=== PATIENT | female | born 1975 | race Caucasian/White ===

== ENCOUNTER 2019-06-03 12:15 | Emergency (ER) | payer MEDICARE ==
[~2019-06-03] VITALS: Ht 162.6 cm; Wt 95.5 kg
[2019-06-03 12:41] VITALS: Ht 162.6 cm; Wt 95.5 kg
[2019-06-03] MEDS ORDERED: ULTRAM50 MG PO (12:42)
[2019-06-03] MEDS ORDERED: ZOLOFT25 MG PO (12:44)
[2019-06-03] MEDS ORDERED: PROTONIX40 MG PO (12:44)
[2019-06-03] MEDS ORDERED: NORVASC10 MG PO (12:44)
[2019-06-03] MEDS ORDERED: DIOVAN40 MG PO (12:45)
[2019-06-03] MEDS ORDERED: CYCLOBENZAPRINE10 MG PO (14:45)
[2019-06-03] MEDS ORDERED: MECLIZINE HCL25 MG PO (14:45)
[2019-06-03 15:09] VITALS: BP 175/98
== END 2019-06-03 15:14 | disposition home or self-care (01) ==
LOC: D.ER 12:15
DX: M54.2 Cervicalgia (principal); R11.0 Nausea; R42 Dizziness and giddiness; I10 Essential (primary) hypertension

== ENCOUNTER 2019-09-17 15:56 | Inpatient (IN) | payer MEDICARE ==
[~2019-09-17] VITALS: Ht 162.6 cm; Wt 95.5 kg
[~2019-09-17 15:56] MED LIST: CYCLOBENZAPRINE10 MG PO; DIOVAN40 MG PO; MECLIZINE HCL25 MG PO; NORVASC10 MG PO; PROTONIX40 MG PO; ULTRAM50 MG PO; ZOLOFT25 MG PO
[2019-09-17 16:29] LABS: BASOPHILS 0.3 % (0-2); EOSINOPHILS 1.1 % (0-7); HEMATOCRIT 42.2 % (36.0-48.0); HEMOGLOBIN 13.6 g/dL (12-16); IMMATURE GRANULOCYTES 0.2 % (0-5); MCH 28.9 pg (26.0-34.0); MCHC 32.2 g/dL (31.0-37.0); MCV 89.6 fL (80.0-100.0); MEAN PLATELET VOLUME 9.7 fL (7.4-10.4); MONOCYTES 6.1 % (2-11); NEUTROPHILS 73.3 % (40-80); PLATELET COUNT 399 10x3/uL (130-400); RBC 4.71 10x6/uL (4.00-5.40); RDW 12.7 % (11.5-14.5); WBC 10.1 10x3/uL (4.8-10.8)
[2019-09-17 16:43] LABS: ANION GAP 13.5 mmol/L (8-16); CALCIUM 8.9 mg/dL (8.5-10.1); CREATININE - SERUM 0.9 mg/dL (0.6-1.3); POTASSIUM - SERUM 3.5 mmol/L (3.5-5.1)
[2019-09-17 16:46] LABS: ALBUMIN 3.5 g/dL (3.4-5.0); BILIRUBIN - TOTAL 0.41 mg/dL (0.2-1.3); PROTEIN - SERUM 7.7 g/dL (6.4-8.2)
[2019-09-17 17:21] LABS: BILIRUBIN NEGATIVE (NEGATIVE); GLUCOSE NEGATIVE (NEGATIVE); KETONE NEGATIVE (NEGATIVE); NITRITE NEGATIVE (NEGATIVE); UROBILINOGEN NORMAL (NORMAL)
[2019-09-17 17:26] LABS: LIPASE 115 U/L (73-393)
[2019-09-17 18:41] LABS: AMYLASE - SERUM 40 U/L (25-115)
[2019-09-17] MEDS ORDERED: EDARBYCLOR 40-1 EAC1 PO (20:19)
[2019-09-17 22:49] VITALS: BP 163/85; BMI 36.1
[2019-09-18] VITALS: BP 124/65
--- NOTE | 2019-09-18 01:14 | NUR ---
PATIENT REQUESTS PAIN MEDICINE. RATES PAIN 8/10 IN ABDOMEN. ADMINISTERED PER ORDER. DENIES FURTHER NEEDS AT THIS TIME. CALL LIGHT REMAINS IN REACH. CPOC.
[2019-09-18 04:00] VITALS: BP 130/77
[2019-09-18 10:42] VITALS: BP 143/64
[2019-09-18 11:46] VITALS: Ht 162.6 cm; Wt 95.5 kg
[2019-09-18] MEDS ORDERED: FLAGYL500 MG PO (13:49)
[2019-09-18] MEDS ORDERED: LEVAQUIN750 MG PO (13:49)
--- NOTE | 2019-09-18 14:05 | MORECARE ---
CASE MANAGEMENT DISCHARGE SUMMARY PATIENT: SUNSHINE CHILD UNIT: [id number] ADM DATE: 09/17/19 AGE: 44 : 73 SEX: F ROOM/BED: D.2229 AUTHOR: WILY MARTINEZ PHYSICIAN: REFERRING PHYSICIAN: LINDA TORRES MD DATE OF SERVICE: 09/18/19 Discharge Plan Patient Name: SUNSHINE CHILD [facility] [facility] 1975 Planned Disposition: Home Anticipated Discharge Date: Discharge Date: Expected LOS: Initial Reviewer: [email or web address] Initial Review Date: 09/18/2019 Generated: 09/18/19 3:04 pm Patient Name: SUNSHINE CHILD Page 12486 at 1405 All edits/amendments must be made on the electronic document DICTATION DATE: 09/18/19 1404 REELING OPERATOR: FILEMON 09/18/19 1404 RPT#: [id number] DC DATE: STATUS: ADM IN [facility] [address] [place] [address] END OF REPORT
--- NOTE | 2019-09-18 14:12 | MORECARE ---
CASE MANAGEMENT DISCHARGE SUMMARY PATIENT: SUNSHINE CHILD UNIT: [id number] ADM DATE: 09/17/19 AGE: 44 : 73 SEX: F ROOM/BED: D.2229 AUTHOR: MICHELLE,DOC PHYSICIAN: REFERRING PHYSICIAN: LINDA TORRES MD DATE OF SERVICE: 09/18/19 Discharge Plan Patient Name: SUNSHINE CHILD Facility: [facility]:[place] : 1975 Planned Disposition: Home Anticipated Discharge Date: Discharge Date: Expected LOS: Initial Reviewer: [email or web address] Initial Review Date: 09/18/2019 Generated: 09/18/19 3:11 pm Comments DCP- Discharge Planning Updated by [email or web address]: Maria L Putnam on 09/18/19 1:[address] Patient Name: SUNSHINE CHILD Admission Status: ER Accout number: [id number] Admission Date: 09-17-2019 : 1975 Admission Diagnosis: Attending: LINDA TORRES Current LOS: 1 Anticipated DC Date: Planned Disposition: Home Primary Insurance: [employer] Discharge Planning Comments: CM spoke with patient regarding discharge planning/needs. She is currently living at [address] [place] [address] in [place] with her boyfriend and plans on moving here. Her PCP is in [place]. She is completely independent with all ADL's and IADL's. She states her boyfriend will pick her up at discharge. Informed of availability of home health, rehab and DME, denies needs at this time. No needs identified. Home today. Manager Hematology: Maria L Putnam DCPIA - Discharge Planning Initial Assessment Updated by [email or web address]: Maria L Putnam on 09/18/19 2:04 pm * Is the patient Alert and Oriented? Yes * PCP Dr Mich Oswald in [place] * Pharmacy [facility] in [place] * Preadmission Environment Home with Family * ADLs Independent * Equipment CPAP * List name and contact numbers for known caregivers / representatives who currently or will assist patient after discharge: Jorge maddox - [phone] * Verbal permission to speak to the caregivers and representatives has been obtained from the patient. Yes * Community resources currently utilized None * Additional services required to return to the preadmission environment? No * Can the patient safely return to the preadmission environment? Yes * Has this patient been hospitalized within the prior 30 days at any hospital? No Last DP export: 09/18/19 1:05 p Patient Name: SUNSHINE CHILD Page 70187 at 1412 All edits/amendments must be made on the electronic document DICTATION DATE: 09/18/191410 SOA ENGINEER: FILEMON 09/18/191410 RPT#: [id number] DC DATE: STATUS: ADM IN [facility] [address] [place] [address] END OF REPORT
--- NOTE | 2019-09-18 17:13 | NUR ---
DISCHARGE PAPERWORK SIGNED, ALL QUESTIONS ANSWERED. IV TO RIGHT AC DC'D, TIP INTACT. ESCORTED OUT VIA WHEELCHAIR.
--- NOTE | 2019-09-19 09:07 | MORECARE ---
CASE MANAGEMENT DISCHARGE SUMMARY PATIENT: SUNSHINE CHILD UNIT: [id number] ADM DATE: 09/17/19 AGE: 44 : 73 SEX: F ROOM/BED: D.2229 AUTHOR: MICHELLEDOC PHYSICIAN: REFERRING PHYSICIAN: LINDA TORRES MD DATE OF SERVICE: 09/19/19 Discharge Plan Patient Name: SUNSHINE CHILD Facility: [facility]:[place] : 1975 Planned Disposition: Home Anticipated Discharge Date: Discharge Date: 09/18/2019 Expected LOS: Initial Reviewer: [email or web address] Initial Review Date: 09/18/2019 Generated: 09/19/19 10:06 am Comments DCP- Discharge Planning Updated by [email or web address]: Maria L Putnam on 09/18/19 1:[address] Patient Name: SUNSHINE CHILD Admission Status: ER Accout number: [id number] Admission Date: 09-17-2019 : 1975 Admission Diagnosis: Attending: LINDA TORRES Current LOS: 1 Anticipated DC Date: Planned Disposition: Home Primary Insurance: [employer] Discharge Planning Comments: CM spoke with patient regarding discharge planning/needs. She is currently living at [address] [place] [address] in [place] with her boyfriend and plans on moving here. Her PCP is in [place]. She is completely independent with all ADL's and IADL's. She states her boyfriend will pick her up at discharge. Informed of availability of home health, rehab and DME, denies needs at this time. No needs identified. Home today. Salvage Worker: Maria L Putnam DCPIA - Discharge Planning Initial Assessment Updated by [email or web address]: Maria L Putnam on 09/18/19 2:04 pm * Is the patient Alert and Oriented? Yes * PCP Dr Mich Oswald in [place] * Pharmacy [facility] in [place] * Preadmission Environment Home with Family * ADLs Independent * Equipment CPAP * List name and contact numbers for known caregivers / representatives who currently or will assist patient after discharge: Jorge jonesfriendayanna - [phone] * Verbal permission to speak to the caregivers and representatives has been obtained from the patient. Yes * Community resources currently utilized None * Additional services required to return to the preadmission environment? No * Can the patient safely return to the preadmission environment? Yes * Has this patient been hospitalized within the prior 30 days at any hospital? No Last DP export: 09/18/19 1:12 p Patient Name: SUNSHINE CHILD Page 71680 at 0907 All edits/amendments must be made on the electronic document DICTATION DATE: 09/19/19905 GLASS FURNACE OPERATOR: FILEMON 09/19/19905 RPT#: [id number] DC DATE:09/18/19 STATUS: DIS IN [facility] [address] [place] [address] END OF REPORT
== END 2019-09-18 17:16 | disposition home or self-care (01) | DRG 392 ==
LOC: D.ER 15:56 → D.MS 19:26
PROVIDERS: Emergency Medicine; ADMIT Internal Medicine Nephrology; ATTEND Internal Medicine Nephrology
DX: K57.92 Diverticulitis of intestine, part unspecified, without perforation or abscess without bleeding (principal); I10 Essential (primary) hypertension; E78.5 Hyperlipidemia, unspecified; F41.9 Anxiety disorder, unspecified; G89.29 Other chronic pain; M54.2 Cervicalgia

== ENCOUNTER 2019-09-20 10:36 | Inpatient (IN) | payer BC ==
[~2019-09-20] VITALS: Ht 162.6 cm; Wt 95.3 kg
[~2019-09-20 10:36] MED LIST changes: +EDARBYCLOR 40-1 EAC1 PO; +FLAGYL500 MG PO; +LEVAQUIN750 MG PO
[2019-09-20 11:21] LABS: BASOPHILS 0.5 % (0-2); EOSINOPHILS 2.2 % (0-7); HEMATOCRIT 44.5 % (36.0-48.0); HEMOGLOBIN 13.9 g/dL (12-16); IMMATURE GRANULOCYTES 0.2 % (0-5); LYMPHOCYTES 23.2 % (15-50); MCH 28.4 pg (26.0-34.0); MCHC 31.2 g/dL (31.0-37.0); MEAN PLATELET VOLUME 9.9 fL (7.4-10.4); NEUTROPHILS 67.9 % (40-80); PLATELET COUNT 378 10x3/uL (130-400); RBC 4.89 10x6/uL (4.00-5.40); RDW 12.5 % (11.5-14.5); WBC 8.5 10x3/uL (4.8-10.8)
[2019-09-20 11:31] LABS: CALC OSMOLALITY 274 mosm/kg (275-300); CALCIUM 9.1 mg/dL (8.5-10.1); CARBON DIOXIDE 26.7 mmol/L (21.0-32.0); CHLORIDE - SERUM 103 mmol/L (98-107); CREATININE - SERUM 0.9 mg/dL (0.6-1.3); GLUCOSE 94 mg/dL (74-106); POTASSIUM - SERUM 3.4 mmol/L (3.5-5.1); SODIUM 138 mmol/L (136-145); UREA NITROGEN 9 mg/dL (7-18); eGFR NON AFRICAN AMERICAN 72 mL/min (90-120)
[2019-09-20 11:34] LABS: HCG URINE NEGATIVE (NEGATIVE)
[2019-09-20 11:43] LABS: ALBUMIN 3.3 g/dL (3.4-5.0); ALKALINE PHOSPHATASE 82 U/L (30-120); ALT (SGPT) 28 U/L (10-68); AMYLASE - SERUM 94 U/L (25-115); LIPASE 852 U/L (73-393); PROTEIN - SERUM 7.8 g/dL (6.4-8.2); TROPONIN-I < 0.017 ng/mL (0.000-0.060)
[2019-09-20 11:47] LABS: SPECIFIC GRAVITY 1.015 (1.005-1.020)
[2019-09-20 11:48] LABS: BACTERIA MODERATE /hpf (NEGATIVE); BILIRUBIN NEGATIVE (NEGATIVE); EPITHELIAL CELLS 0-5 /hpf (0-5); GLUCOSE NEGATIVE (NEGATIVE); KETONE NEGATIVE (NEGATIVE); NITRITE NEGATIVE (NEGATIVE); UROBILINOGEN NORMAL (NORMAL); WHITE CELLS - URINE 0-5 /hpf (NEGATIVE)
[2019-09-20] MEDS ORDERED: EDARBYCLOR 40-1 EAC1 PO (14:06)
--- NOTE | 2019-09-20 15:00 | NUR ---
ASSESSMENT PER FLOW SHEET. PATIENT IS WITHOUT DISTRESS. ORIENTATION TO ROOM.CALL LIGHT IN REACH.
[2019-09-20 15:04] VITALS: BP 160/100; BMI 36.1
[2019-09-20 22:05] VITALS: BP 161/75
[2019-09-21 01:08] VITALS: BP 133/74
[2019-09-21 05:38] VITALS: BP 130/59
[2019-09-21 05:58] LABS: BASOPHILS 0.5 % (0-2); EOSINOPHILS 3.5 % (0-7); HEMATOCRIT 40.1 % (36.0-48.0); HEMOGLOBIN 12.6 g/dL (12-16); IMMATURE GRANULOCYTES 0.5 % (0-5); LYMPHOCYTES 34.3 % (15-50); MCH 28.4 pg (26.0-34.0); MCHC 31.4 g/dL (31.0-37.0); MCV 90.5 fL (80.0-100.0); MEAN PLATELET VOLUME 9.6 fL (7.4-10.4); MONOCYTES 7.7 % (2-11); NEUTROPHILS 53.5 % (40-80); PLATELET COUNT 363 10x3/uL (130-400); RBC 4.43 10x6/uL (4.00-5.40); RDW 12.5 % (11.5-14.5)
--- NOTE | 2019-09-21 06:00 | NUR ---
I have reviewed this patient and I concur with the Shift Assessment completed by the Licensed Practical Nurse today this shift.
[2019-09-21 06:36] LABS: ALKALINE PHOSPHATASE 74 U/L (30-120); ALT (SGPT) 23 U/L (10-68); BILIRUBIN - TOTAL 0.36 mg/dL (0.2-1.3); CALC OSMOLALITY 275 mosm/kg (275-300); CALCIUM 8.5 mg/dL (8.5-10.1); CARBON DIOXIDE 27.7 mmol/L (21.0-32.0); CHLORIDE - SERUM 105 mmol/L (98-107); GLUCOSE 96 mg/dL (74-106); POTASSIUM - SERUM 3.2 mmol/L (3.5-5.1); PROTEIN - SERUM 6.8 g/dL (6.4-8.2); SODIUM 139 mmol/L (136-145); UREA NITROGEN 7 mg/dL (7-18)
[2019-09-21 06:45] LABS: CREATININE - SERUM 0.6 mg/dL (0.6-1.3); eGFR NON AFRICAN AMERICAN > 90 mL/min (90-120)
[2019-09-21 09:57] VITALS: BP 156/89
[2019-09-21 10:49] VITALS: Ht 162.6 cm; Wt 95.3 kg
[2019-09-21 14:41] VITALS: BP 150/86
[2019-09-21 17:46] VITALS: BP 163/98
--- NOTE | 2019-09-21 18:45 | NUR ---
PATIENT IN BED WITH IV INTACT. NO COMPLAINTS OR SIGNS OF DISTRESS. CALL LIGHT WITHIN REACH. DENIES ANY NEEDS AT THIS TIME.
[2019-09-21 20:00] VITALS: BP 138/81
--- NOTE | 2019-09-22 01:12 | NUR ---
I have reviewed this patient and I concur with the Shift Assessment completed by the Licensed Practical Nurse today this shift.
--- NOTE | 2019-09-22 02:32 | NUR ---
PT RESTING IN BED. EYES CLOSED. NO SIGNS OF DISTRESS. BREATHING EVEN AND UNLABORED. IV SITE RT FA DRESSING CLEAN DRY AND INTACT. NO SIGNS OF INFECTION. LUNG SOUNDS CLEAR. BOWEL SOUNDS ACTIVE. SKIN CLEAN DRY AND INTACT. WILL CONITNUE PLAN OF CARE. CALL LIGHT IN REACH. BED LOWERED AND LOCKED. BED RAILS UPX2
[2019-09-22 04:00] VITALS: BP 141/95
[2019-09-22 04:42] LABS: BASOPHILS 0.3 % (0-2); EOSINOPHILS 2.7 % (0-7); HEMOGLOBIN 13.1 g/dL (12-16); IMMATURE GRANULOCYTES 0.3 % (0-5); LYMPHOCYTES 24.6 % (15-50); MCH 28.4 pg (26.0-34.0); MCV 88.7 fL (80.0-100.0); MEAN PLATELET VOLUME 9.4 fL (7.4-10.4); MONOCYTES 7.7 % (2-11); NEUTROPHILS 64.4 % (40-80); PLATELET COUNT 366 10x3/uL (130-400); RBC 4.62 10x6/uL (4.00-5.40); RDW 12.5 % (11.5-14.5); WBC 6.8 10x3/uL (4.8-10.8)
[2019-09-22 05:01] LABS: ANION GAP 11.3 mmol/L (8-16); BILIRUBIN - TOTAL 0.35 mg/dL (0.2-1.3); CALCIUM 8.7 mg/dL (8.5-10.1); CARBON DIOXIDE 26.9 mmol/L (21.0-32.0); POTASSIUM - SERUM 3.2 mmol/L (3.5-5.1); PROTEIN - SERUM 6.9 g/dL (6.4-8.2)
[2019-09-22 05:04] LABS: CREATININE - SERUM 0.9 mg/dL (0.6-1.3)
[2019-09-22 09:13] VITALS: BP 149/85
[2019-09-22 09:47] LABS: MAGNESIUM - SERUM 1.9 mg/dL (1.8-2.4)
[2019-09-22 09:49] LABS: POTASSIUM - SERUM 3.7 mmol/L (3.5-5.1)
[2019-09-22] MEDS ORDERED: ZOFRAN ODT4 MG/UDTAB PO (10:53)
[2019-09-22] MEDS ORDERED: EDARBYCLOR 40-1 EAC1 PO (11:29)
--- NOTE | 2019-09-22 12:03 | MORECARE ---
CASE MANAGEMENT DISCHARGE SUMMARY PATIENT: SUNSHINE CHILD UNIT: [id number] ADM DATE: 09/20/19 AGE: 44 : 73 SEX: F ROOM/BED: D.2223 AUTHOR: WILY MARTINEZ PHYSICIAN: REFERRING PHYSICIAN: JANETTE ROMANO DO DATE OF SERVICE: 09/22/19 Discharge Plan Patient Name: SUNSHINE CHILD [facility] [facility] 1975 Planned Disposition: Home or Self Care Anticipated Discharge Date: Discharge Date: Expected LOS: Initial Reviewer: [email or web address] Initial Review Date: 09/20/2019 Generated: 09/22/19 1:02 pm DCPIA - Discharge Planning Initial Assessment Updated by [email or web address]: Lisset Schaeffer on 09/22/19 12:01 pm * Is the patient Alert and Oriented? Yes * PCP MIKAELA GARCIA IN [place] * Pharmacy [facility] IN [place] * Preadmission Environment Home with Family * ADLs Independent * Equipment None * List name and contact numbers for known caregivers / representatives who currently or will assist patient after discharge: DICKSON VIERAFRIEND [phone] * Verbal permission to speak to the caregivers and representatives has been obtained from the patient. N/A * Community resources currently utilized None * Additional services required to return to the preadmission environment? No * Can the patient safely return to the preadmission environment? Yes * Has this patient been hospitalized within the prior 30 days at any hospital? Yes Patient Name: SUNSHINE CHILD Page 42567 at 1203 All edits/amendments must be made on the electronic document DICTATION DATE: 09/22/19 120 ATHLETIC SHOE DESIGNER: FILEMON 09/22/19 1202 RPT#: [id number] DC DATE: STATUS: ADM IN [facility] [address] [place] [address] END OF REPORT
--- NOTE | 2019-09-22 12:10 | MORECARE ---
CASE MANAGEMENT DISCHARGE SUMMARY PATIENT: SUNSHINE CHILD UNIT: [id number] ADM DATE: 09/20/19 AGE: 44 : 73 SEX: F ROOM/BED: D.2223 AUTHOR: MICHELLE,DOC PHYSICIAN: REFERRING PHYSICIAN: JANETTE ROMANO DO DATE OF SERVICE: 09/22/19 Discharge Plan Patient Name: SUNSHINE CHILD Facility[facility]:[place] : 1975 Planned Disposition: Home or Self Care Anticipated Discharge Date: Discharge Date: Expected LOS: Initial Reviewer: [email or web address] Initial Review Date: 09/20/2019 Generated: 09/22/19 1:10 pm Comments DCP- Discharge Planning Updated by [email or web address]: Lisset Schaeffer on 09/22/19 11:[address] Patient Name: SUNSHINE CHILD Admission Status: ER Accout number: [id number] Admission Date: 09-20-2019 : 1975 Admission Diagnosis: Attending: JANETTE ROMANO Current LOS: 2 Anticipated DC Date: Planned Disposition: Home or Self Care Primary Insurance: [employer] OUT OF STATE Discharge Planning Comments: CM met with patient to complete initial dc planning assessment. CM educated patient on the CM role and verbal consent given by patient to complete assessment. Patient lives at home with her boyfriend where she is independent with her care. At discharge patient plans to return home and feels this is a safe discharge. CM discussed availability of home health, rehab services, and medical equipment. Patient denied known discharge needs at this time. She states she feels better. CM will continue to follow and will assist as needed with dc plans/needs. Car Pusher: Lisset Schaeffer DCPIA - Discharge Planning Initial Assessment Updated by [email or web address]: Lisset Schaeffer on 09/22/19 12:01 pm * Is the patient Alert and Oriented? Yes * PCP MIKAELA GARCIA IN [place] * Pharmacy [facility] IN [place] * Preadmission Environment Home with Family * ADLs Independent * Equipment None * List name and contact numbers for known caregivers / representatives who currently or will assist patient after discharge: DICKSON SCHROEDER -BOYFRIEND [phone] * Verbal permission to speak to the caregivers and representatives has been obtained from the patient. N/A * Community resources currently utilized None * Additional services required to return to the preadmission environment? No * Can the patient safely return to the preadmission environment? Yes * Has this patient been hospitalized within the prior 30 days at any hospital? Yes Last DP export: 09/22/19 11:02 a Patient Name: SUNSHINE CHILD Page 47415 at 1210 All edits/amendments must be made on the electronic document DICTATION DATE: 09/22/19 1210 GLOBAL RISK MANAGEMENT DIRECTOR: FILEMON 09/22/19 1210 RPT#: [id number] DC DATE: STATUS: ADM IN [facility] [address] [place] [address] END OF REPORT
--- NOTE | 2019-09-22 12:15 | NUR ---
PATIENT IV REMOVED AT THIS TIME WITH CATH TIP INTACT. TOLERATED WITH SMALL AMOUNT OF PAIN. GETTING READY FOR DC AT THIS TIME. CALL LIGHT WITHIN REACH.
--- NOTE | 2019-09-22 12:30 | NUR ---
PATIENT RECIEVED DC INSTRUCTIONS. VERBALIZED UNDERSTANDING. NO QUESTIONS AT THIS TIME. WAITING FOR TRANSPORTATION. EXPLAINED TO RESULTS ENGINEER MEDS AT PHARMACY. VERBALIZED UNDERSTANDING. CALL LIGHT WITHIN REACH.
[2019-09-22] MEDS ORDERED: LEVAQUIN750 MG (12:33)
[2019-09-22] MEDS ORDERED: FLAGYL500 MG PO (12:35)
[2019-09-22 12:36] VITALS: BP 140/95
--- NOTE | 2019-09-22 14:06 | NUR ---
PATIENT ESCORTED OUT OF HOSPITAL VIA WC WITH PERSONAL BELONGINGS TO PRIVATE VEHICLE.
--- NOTE | 2019-09-22 16:26 | MORECARE ---
CASE MANAGEMENT DISCHARGE SUMMARY PATIENT: SUNSHINE CHILD UNIT: [id number] ADM DATE: 09/20/19 AGE: 44 : 73 SEX: F ROOM/BED: D.2223 AUTHOR: MICHELLEDOC PHYSICIAN: REFERRING PHYSICIAN: JANETTE ROMANO DO DATE OF SERVICE: 09/22/19 Discharge Plan Patient Name: SUNSHINE CHILD Facility: [facility]:[place] : 1975 Planned Disposition: Home or Self Care Anticipated Discharge Date: Discharge Date: 09/22/2019 Expected LOS: 0 Initial Reviewer: [email or web address] Initial Review Date: 09/20/2019 Generated: 09/22/19 5:26 pm Comments DCP- Discharge Planning Updated by [email or web address]: Lisset Schaeffer on 09/22/19 11:[address] Patient Name: SUNSHINE CHILD Admission Status: ER Accout number: [id number] Admission Date: 09-20-2019 : 1975 Admission Diagnosis: Attending: JANETTE ROMANO Current LOS: 2 Anticipated DC Date: Planned Disposition: Home or Self Care Primary Insurance: [employer] OUT OF STATE Discharge Planning Comments: CM met with patient to complete initial dc planning assessment. CM educated patient on the CM role and verbal consent given by patient to complete assessment. Patient lives at home with her boyfriend where she is independent with her care. At discharge patient plans to return home and feels this is a safe discharge. CM discussed availability of home health, rehab services, and medical equipment. Patient denied known discharge needs at this time. She states she feels better. CM will continue to follow and will assist as needed with dc plans/needs. Industrial Training Specialist: Lisset Schaeffer DCPIA - Discharge Planning Initial Assessment Updated by [email or web address]: Lisset Schaeffer on 09/22/19 12:01 pm * Is the patient Alert and Oriented? Yes * PCP MIKAELA GARCIA IN [place] * Pharmacy [facility] [place] * Preadmission Environment Home with Family * ADLs Independent * Equipment None * List name and contact numbers for known caregivers / representatives who currently or will assist patient after discharge: DICKSON ELDA -BOYFRIEND [phone] * Verbal permission to speak to the caregivers and representatives has been obtained from the patient. N/A * Community resources currently utilized None * Additional services required to return to the preadmission environment? No * Can the patient safely return to the preadmission environment? Yes * Has this patient been hospitalized within the prior 30 days at any hospital? Yes Last DP export: 09/22/19 11:10 a Patient Name: SUNSHINE CHILD Page 08447 at 1626 All edits/amendments must be made on the electronic document DICTATION DATE: 09/22/196 TORPEDO WORKER: FILEMON 09/22/19 1626 RPT#: [id number] DC DATE:09/22/19 STATUS: DIS IN [facility] [address] [place] [address] END OF REPORT
== END 2019-09-22 14:12 | disposition home or self-care (01) | DRG 392 ==
LOC: D.ER 10:36 → D.MS 12:20 → D.SDCHOLD 09-21 14:41 → D.MS 09-21 14:47
PROVIDERS: Family Medicine; ADMIT Family Medicine; ATTEND Family Medicine
DX: K57.92 Diverticulitis of intestine, part unspecified, without perforation or abscess without bleeding (principal); I10 Essential (primary) hypertension; E78.5 Hyperlipidemia, unspecified; F41.9 Anxiety disorder, unspecified; G89.29 Other chronic pain; M54.2 Cervicalgia

== ENCOUNTER 2019-11-09 11:15 | Outpatient (CLI) | payer BC ==
[2019-09-21 10:49] VITALS: BMI 36.0
[~2019-11-09 11:15] MED LIST changes: +LEVAQUIN750 MG; +ZOFRAN ODT4 MG/UDTAB PO
== END 2019-11-09 12:15 | disposition home or self-care (01) ==
LOC: D.MAMMO 11:15
PROVIDERS: ATTEND Emergency Medicine
DX: Z12.31 Encounter for screening mammogram for malignant neoplasm of breast (principal)